=== PATIENT | female | born 1970 | race Caucasian/White ===

== ENCOUNTER 2017-09-05 07:40 | Day surgery (SDC) | payer MEDICAID ==
[2017-09-04 16:21] LABS: HEMATOCRIT 34.9 % (36.0-48.0); HEMOGLOBIN 11.7 g/dL (12-16); MCH 31.3 pg (26.0-34.0); MCHC 33.5 g/dL (31.0-37.0); MCV 93.3 fL (80.0-100.0); MEAN PLATELET VOLUME 10.9 fL (7.4-10.4); RBC 3.74 10x6/uL (4.00-5.40); RDW 12.9 % (11.5-14.5); WBC 8.6 10x3/uL (4.8-10.8)
[~2017-09-05] VITALS: Ht 170.2 cm; Wt 78.6 kg
--- NOTE | ~2017-09-05 | OP ---
PATIENT NAME: GURMEET ZHOU MEDICAL RECORD: [id number] :74 LOCATION:D.OPS ADMISSION DATE: SURGEON: GINA EPSTEIN DPM DATE OF OPERATION: 09/05/2017 PREOPERATIVE DIAGNOSIS: Right ankle ligament rupture. POSTOPERATIVE DIAGNOSES: Right ankle ligament rupture. PROCEDURES: 1. Right ankle arthroscopy. 2. Right ATFL ligament reconstruction utilizing an internal brace and modified Brostrom. ANESTHESIA: Preoperative popliteal block per the anesthesia department as well as intraoperative general anesthesia. HEMOSTASIS: Right thigh tourniquet at 350 mmHg. PREOPERATIVE DETAILS: The patient was taken to the OR, placed on the operating table in a supine position. This was followed by induction of general anesthesia, the right extremity was then prepped and draped in usual aseptic technique followed by exsanguination and inflation of tourniquet. PROCEDURE #1: Right ankle arthroscopy: Small stab incisions were made over the lateral anterior medial shoulders of the right ankle. Utilizing blunt trocar, the ankle joint was acquired. The camera was introduced in the medial portal and the synovial shaver in the lateral portal. 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 The synovial shaver was used to excise the chondromalacia as well as bur down the bone spur. Inspection of the AITF ligament showed it to be intact. Inspection of the ATFL ligament showed it to be stretched, attenuated and not healthy. Continued extensive debridement of the hypertrophied capsular tissue as well as synovitis was performed. The portals were switched with the camera being introduced in the other port and the synovial shaver switched as well. Following the extensive debridement, the camera as well as the synovial shaver were removed. PROCEDURE #2: ATFL reconstruction: The lateral incision was carried distally and then posteriorly along the coursing of the anterior margin of the fibula. The incision was deepened down through subcutaneous tissue being sure to avoid these dorsal cutaneous nerves. They were retracted in the wound. Dissection was carried down through the fat layer, and lipoma was removed from this area measured approximately 3 x 3 x 1 cm. This gave acquisition to the lateral ankle joint capsule, which was incised sharply giving access to the ATFL. It was noted to be quite hypertrophied and the ligament itself was not healthy. At this time, the area of the insertion of the ATFL on the talus and the fibula were prepped and utilizing the internal brace, the ligament was reconstructed. A modified Brostrom was then performed over the top of the internal brace giving excellent rigidity to the ligament as well as allowing excellent range of motion to the ankle. The wound was flushed. The deep tissue was reapproximated with 2-0 Vicryl, the subcutaneous tissue with 4-0 Rapide, and the skin was closed with 4-0 Rapide in a subcuticular technique followed by Dermabond. The anterior medial incision was also closed in a simple interrupted technique with 4-0 Rapide and Dermabond. Adaptic, 4 x 4 and Conform were used to dress the wounds OPERATIVE REPORT [id number] GURMEET ZHOU followed by application of a modified Vargas compression dressing. The tourniquet was deflated. POSTOPERATIVE DETAILS: The patient tolerated the procedure well and left the OR with vital signs stable and vascular status at preoperative levels. The patient was transported to recovery per anesthesia in stable condition. TRANSINT:[id number] Voice Confirmation ID: [id number] DOCUMENT ID: [id number] GINA EPSTEIN DPM at 0918 CC: [id number] DICTATION DATE: 09/05/17 1235 AUDIOVISUAL AIDS TECHNICIAN: 09/05/[address] [facility] 09/05/17 [facility] [address] [place] [address]
[~2017-09-05 07:40] MED LIST: COZAAR50 MG; NEURONTIN 400400 MG; SYNTHROID88 MCG PO; ZANAFLEX2 M1 PO
[2017-09-05 08:36] VITALS: BP 115/66; Ht 170.2 cm; Wt 78.6 kg
== END 2017-09-05 15:05 | disposition home or self-care (01) ==
LOC: D.OPS 07:40 → D.PAN 13:15 → D.OPS 15:05
PROVIDERS: Anesthesiology
DX: S93.431A Sprain of tibiofibular ligament of right ankle, initial encounter (principal); M77.9 Enthesopathy, unspecified; M94.271 Chondromalacia, right ankle and joints of right foot; D17.23 Benign lipomatous neoplasm of skin and subcutaneous tissue of right leg; Z01.812 Encounter for preprocedural laboratory examination